=== PATIENT | female | born 1970 ===

== ENCOUNTER 2020-12-30 01:01 | Outpatient (CLI) | payer OTHER, SELFPAY ==
[2020-12-30 08:22] VITALS: BP 157/90; PULSE 85; RESP 18; TEMP 36.7; O2SAT 95
[2020-12-30] MEDS: Normal Saline 500 ML 30 ML IV (09:40)
[2020-12-30 09:45] VITALS: BP 116/78; PULSE 84; RESP 18; TEMP 36.7; O2SAT 97
[2020-12-30 10:12] VITALS: RESP 18; TEMP 36.8; O2SAT 94
[2020-12-30 10:42] VITALS: BP 112/79; RESP 18; TEMP 36.6; O2SAT 94
[2020-12-30 11:12] VITALS: BP 125/87; PULSE 72; RESP 18; TEMP 36.6; O2SAT 95
== END 2020-12-30 01:02 | disposition home or self-care (01) ==
PROVIDERS: PCP Internal Medicine; Visit Provider Family Medicine
DX: U07.1 COVID-19 (principal)
CPT/HCPCS: 96365